=== PATIENT | female | born 1930 | race Caucasian/White ===

== ENCOUNTER 2018-08-15 15:09 | Emergency (ER) | payer OTHER ==
[~2018-08-15] VITALS: Ht 154.9 cm; Wt 59.6 kg
[~2018-08-15 15:09] MED LIST: ASA81 MG; CYCLOPHOSPHAMIDE; HYDROCODONE-AP1 EA13 PO; HYDROCODONE-AP1 EAC7; NITROFURANTOIN; RENVELA800 MG PO; TYLENOL PO; Z.0.CATAPRES0.1 MG PO; Z.0.LEVOTHROID100 MC PO; Z.0.OMEPRAZOLE20 MG PO; Z.0.PREDNISONE20 MG; Z.0.PRILOSEC20 MG; [UNRECOGNIZED DRUG - OTHER] PO
[2018-08-15 16:36] LABS: BASOPHILS % 0.5 % (0.0-1.0); EOSINOPHILS # (AUTO) 0.1 (0.0-0.4); EOSINOPHILS % 1.3 % (0.0-6.0); HEMATOCRIT 33.4 % (34.2-44.1); HEMOGLOBIN 10.7 g/dL (12.0-16.0); LYMPHOCYTES # (AUTO) 0.6 (1.0-3.2); LYMPHOCYTES % 15.6 % (18.0-39.1); MEAN CORPUSCULAR HEMOGLOBIN 33.6 pg (28-32); MONOCYTES # (AUTO) 0.3 (0.2-0.8); MONOCYTES % 7.2 % (4.4-11.3); NEUTROPHILS # (AUTO) 2.8 (2.1-6.9); NEUTROPHILS % 75.1 % (38.7-80.0); PLATELET COUNT 140 x10e3/uL (140-360); RED BLOOD COUNT 3.18 x10e6/uL (3.6-5.1); RED CELL DISTRIBUTION WIDTH 15.9 % (11.7-14.4)
[2018-08-15 16:40] LABS: INR 1.15; PROTHROMBIN TIME 13.8 seconds (11.9-14.5)
[2018-08-15 16:41] LABS: PARTIAL THROMBOPLASTIN TIME 34.7 seconds (23.8-35.5)
[2018-08-15 16:50] LABS: ALBUMIN 3.2 g/dL (3.5-5.0); ANION GAP 14.2 mmol/L (8-16); CALCIUM 8.9 mg/dL (8.4-10.2); CREATININE, SERUM 1.93 mg/dL (0.57-1.11); MAGNESIUM 1.7 MG/DL (1.3-2.1); POTASSIUM 3.2 mmol/L (3.5-5.1)
[2018-08-15 16:57] LABS: CREATINE KINASE MB 0.8 ng/mL (0-5.0)
--- NOTE | 2018-08-15 18:09 | Diagnostic Imaging Report ---
EXAMINATION: CHEST SINGLE (PORTABLE) INDICATION: \S\DIZZY \[id number] \[id number] COMPARISON: CT chest 12/21/2011 FINDINGS: AP view TUBES and LINES: None. LUNGS: Lungs are well inflated. Bilateral central pulmonary vascular congestion. No lobar consolidations. PLEURA: No pleural effusion or pneumothorax. HEART AND MEDIASTINUM: Mild enlargement of the cardiac silhouette. Moderate calcifications of the aortic arch. BONES AND SOFT TISSUES: No acute osseous lesion. Soft tissues are unremarkable. UPPER ABDOMEN: No free air under the diaphragm. IMPRESSION: Enlargement of the cardiac silhouette with associated central pulmonary vascular congestion. Signed by: Dr. Leslie Castorena M.D. on 08/15/2018 6:05 PM
[2018-08-15 18:20] LABS: EOSINOPHILS % (MANUAL) 2 % (0-7); LYMPHOCYTES % (MANUAL) 12 % (19-48); MONOCYTES % (MANUAL) 5 % (3.4-9.0); NEUTROPHILS % (MANUAL) 81 % (40-74)
[2018-08-15 18:21] LABS: HYPOCHROMASIA SLIGHT; PLATELET ESTIMATE ADEQUATE; PLATELET MORPHOLOGY COMMENT NORMAL; RBC MORPHOLOGY COMMENT NORMAL
--- NOTE | 2018-08-15 18:42 | Diagnostic Imaging Report ---
History:87-year-old female with dizziness during dialysis. Comparison studies: None Technique: Axial images were obtained from the skull base to the vertex. Coronal and sagittal images reconstructed from the axial data. Dose modulation, iterative reconstruction, and/or weight based adjustment of the mA/kV was utilized to reduce the radiation dose to as low as reasonably achievable. Intravenous contrast: None Findings: Scalp/skull: No abnormalities. Extra-axial spaces: Tiny 1 cm soft tissue nodule adjacent to the right lateral julieta abutting the inferior surface of the tentorium (series 2, image 7). No fluid collections. Brain sulci: Mildly prominent. Ventricles: Mild compensatory dilatation. No hydrocephalus. Parenchyma: Describe hypodensities in the supratentorial white matter are small vessel ischemic changes. No masses, hemorrhage, acute or chronic cortical vascular insults. Sellar/suprasellar region: No abnormalities. Craniocervical junction: Patent foramen magnum. No Chiari one malformation. Incidental findings: Atherosclerotic calcifications in the carotid siphons . Impression: No acute abnormalities. Chronic findings: 1. Mild generalized volume loss. 2. Small 1 cm soft tissue nodule abutting the inferior surface of the tentorium, right lateral to the julieta may represent an incidental meningioma. MRI could be considered for further characterization on a nonemergent basis. Preliminary report provided by the fellow. The final read provided by the attending to follow. Signed by: DR Pepe Tapia M.D. on 08/16/2018 8:33 PM
[2018-08-15 19:36] VITALS: BP 139/52
== END 2018-08-15 20:01 | disposition home or self-care (01) ==
LOC: ER 15:09
DX: R42 Dizziness and giddiness (principal); Z99.2 Dependence on renal dialysis
CPT/HCPCS: 36415; 70450; 71045; 80053; 82550; 82553; 83605; 83735; 84484; 85025; 85610; 85730; 87040; 93005; 99284

== ENCOUNTER 2021-10-30 14:08 | Observation (INO) | payer OTHER ==
[~2021-10-30] VITALS: Ht 154.9 cm; Wt 52.2 kg
[2021-10-30 15:12] LABS: BASOPHILS % 0.1 % (0.0-1.0); EOSINOPHILS % 0.1 % (0.0-6.0); LYMPHOCYTES # (AUTO) 0.9 (1.0-3.2); LYMPHOCYTES % 10.5 % (18.0-39.1); MEAN CORPUSCULAR HEMOGLOBIN 33.7 pg (28-32); MEAN CORPUSCULAR HGB CONC 30.7 g/dL (31-35); MEAN CORPUSCULAR VOLUME 109.5 fL (81-99); MONOCYTES # (AUTO) 0.7 (0.2-0.8); MONOCYTES % 7.8 % (4.4-11.3); NEUTROPHILS # (AUTO) 7.1 (2.1-6.9); NEUTROPHILS % 80.9 % (38.7-80.0); PLATELET COUNT 151 x10e3/uL (140-360); RED BLOOD COUNT 1.99 x10e6/uL (3.6-5.1); RED CELL DISTRIBUTION WIDTH 21.1 % (11.7-14.4)
[2021-10-30 15:16] LABS: HEMATOCRIT 21.8 % (34.2-44.1)
[2021-10-30 15:18] LABS: HEMOGLOBIN 6.7 g/dL (12.0-16.0)
[2021-10-30 15:33] LABS: ALBUMIN 2.7 g/dL (3.5-5.0); ALBUMIN/GLOBULIN RATIO 0.9 (0.8-2.0); ALKALINE PHOSPHATASE 91 IU/L (40-150); ANION GAP 16.4 mmol/L (8-16); BLOOD UREA NITROGEN 34 mg/dL (7-26); BUN/CREATININE RATIO 10 (6-25); CALCIUM 9.1 mg/dL (8.4-10.2); CARBON DIOXIDE 28 mmol/L (22-29); CHLORIDE 99 mmol/L (98-107); CREATININE, SERUM 3.37 mg/dL (0.57-1.11); EST GLOMERULAR FILTRATION RATE 13 ML/MIN (60-); GLUCOSE 116 mg/dL (74-118); POTASSIUM 3.4 mmol/L (3.5-5.1); SODIUM 140 mmol/L (136-145)
[2021-10-30 15:36] LABS: ALANINE AMINOTRANSFERASE < 6 IU/L (0-55)
[2021-10-30] MEDS ORDERED: SODIUM CHLORIDE 0.9% 250ML 250 ML IV ONE (15:45)
[2021-10-30 17:00] VITALS: BP 120/73
[2021-10-30 17:07] VITALS: BP 120/73
[2021-10-30] MEDS ORDERED: LEVOTHYROXINE75 MCG PO (18:29)
[2021-10-30] MEDS ORDERED: ASPIRIN81 MG PO (18:29)
[2021-10-30] MEDS ORDERED: CALCIUM ACETAT667 M1 PO (18:29)
[2021-10-30] MEDS ORDERED: ADVAIR 250-501 EACH INH (18:29)
[2021-10-30] MEDS ORDERED: METOPROLOL TART50 MG PO (18:29)
[2021-10-30] MEDS ORDERED: VITAMIN D32400 UNIT/ (18:29)
[2021-10-30] MEDS ORDERED: LOSARTAN POTASS25 MG PO (18:29)
[2021-10-30] MEDS ORDERED: METOPROLOL TARTRATE 50 MG TAB PO SCH (18:45)
[2021-10-30] MEDS ORDERED: LOSARTAN POTASSIUM 25 MG TAB PO SCH (18:45)
[2021-10-30] MEDS: SALMETEROL/FLUTICASONE 250/50 INH SCH (19:30)
[2021-10-30 19:37] VITALS: BP 136/74
[2021-10-30 20:00] VITALS: BP 136/74
[2021-10-30] MEDS: ALPRAZOLAM 0.25 MG TAB PO PRN (20:05)
[2021-10-30] MEDS: LOSARTAN POTASSIUM 25 MG TAB PO SCH (22:28)
[2021-10-30] MEDS: METOPROLOL TARTRATE 50 MG TAB PO SCH (22:29)
[2021-10-30 23:57] VITALS: BP 129/62
[2021-10-31 05:08] VITALS: BP 119/54
[2021-10-31 05:38] LABS: ANION GAP 16.8 mmol/L (8-16); CALCIUM 8.7 mg/dL (8.4-10.2); CREATININE, SERUM 4.14 mg/dL (0.57-1.11); POTASSIUM 3.8 mmol/L (3.5-5.1)
[2021-10-31] MEDS ORDERED: LEVOTHYROXINE SODIUM 75 MCG TAB PO SCH (06:00)
[2021-10-31 06:18] LABS: BASOPHILS % 0.2 % (0.0-1.0); EOSINOPHILS % 0.1 % (0.0-6.0); HEMATOCRIT 22.7 % (34.2-44.1); HEMOGLOBIN 7.1 g/dL (12.0-16.0); LYMPHOCYTES # (AUTO) 0.9 (1.0-3.2); MEAN CORPUSCULAR HGB CONC 31.3 g/dL (31-35); MEAN CORPUSCULAR VOLUME 108.6 fL (81-99); MONOCYTES # (AUTO) 0.8 (0.2-0.8); MONOCYTES % 8.2 % (4.4-11.3); NEUTROPHILS # (AUTO) 7.4 (2.1-6.9); NEUTROPHILS % 80.7 % (38.7-80.0); PLATELET COUNT 136 x10e3/uL (140-360); RED BLOOD COUNT 2.09 x10e6/uL (3.6-5.1); RED CELL DISTRIBUTION WIDTH 21.1 % (11.7-14.4)
[2021-10-31] MEDS: SALMETEROL/FLUTICASONE 250/50 INH SCH (07:10)
[2021-10-31 07:43] VITALS: BP 137/69
[2021-10-31 07:44] VITALS: BP 137/69
[2021-10-31 07:52] LABS: LYMPHOCYTES % (MANUAL) 9 % (19-48); MONOCYTES % (MANUAL) 6 % (3.4-9.0); NEUTROPHILS % (MANUAL) 85 % (40-74)
[2021-10-31 07:53] LABS: PLATELET ESTIMATE SLIGHTLY DECREASED; PLATELET MORPHOLOGY COMMENT NORMAL; POLYCHROMASIA FEW; RBC MORPHOLOGY COMMENT ABNORMAL
[2021-10-31] MEDS ORDERED: CALCIUM ACETATE 667 MG GELCAP PO SCH (08:00)
[2021-10-31] MEDS: ALPRAZOLAM 0.25 MG TAB PO PRN (08:20)
[2021-10-31] MEDS: METOPROLOL TARTRATE 50 MG TAB PO SCH (08:20)
[2021-10-31] MEDS: LOSARTAN POTASSIUM 25 MG TAB PO SCH (08:21)
[2021-10-31] MEDS ORDERED: HYDROCODONE/APAP 10MG-325MG TAB PO PRN (09:00)
[2021-10-31] MEDS ORDERED: ALPRAZOLAM 0.5 MG TAB PO PRN (09:00)
[2021-10-31] MEDS ORDERED: ASPIRIN 81 MG CHEW TAB PO SCH (09:00)
[2021-10-31] MEDS: Morphine 4mg Syringe 4 MG/ML INJ IV PRN ×3 (09:39→18:18)
[2021-10-31 11:56] VITALS: BP 117/66
[2021-10-31 15:40] VITALS: BP 132/62
== END 2021-10-31 18:23 | disposition hospice, home (50) ==
LOC: ER 14:13 → ERHOLD 15:40 → INTOOBSV 15:40 → MED/SURG 17:04
PROVIDERS: ADMIT Internal Medicine; ATTEND Internal Medicine
DX: I12.0 Hypertensive chronic kidney disease with stage 5 chronic kidney disease or end stage renal disease (principal); N18.6 End stage renal disease; D63.1 Anemia in chronic kidney disease; R64 Cachexia; Z99.2 Dependence on renal dialysis; Z88.5 Allergy status to narcotic agent; Z88.8 Allergy status to other drugs, medicaments and biological substances; F41.9 Anxiety disorder, unspecified; M25.512 Pain in left shoulder; R53.81 Other malaise; Z20.822 Contact with and (suspected) exposure to COVID-19; Z68.21 Body mass index [BMI] 21.0-21.9, adult; Z51.5 Encounter for palliative care; Z66 Do not resuscitate
CPT/HCPCS: 36415 ×2; 71045; 80048; 80053; 83880; 85025 ×2; 86850; 86900; 86920; 93005; 94664; 94799 ×2; 99284; G0378 ×2; J2270; U0002